=== PATIENT | male | born 1965 | race Caucasian/White ===

== ENCOUNTER → 2021-10-31 09:33 | Outpatient (BNVA) | payer OTHER, SELFPAY | PROVIDERS: PCP Internal Medicine; Referring Provider Internal Medicine; Visit Provider Surgery ==

== ENCOUNTER 2021-11-16 08:07 | Outpatient (REF) | payer OTHER, SELFPAY ==
--- NOTE | ~2021-11-16 | CT_ITS ---
EXAMINATION: CT PELVIS WITH CONTRAST CLINICAL INFORMATION: Unilateral inguinal hernia. COMPARISON: None TECHNIQUE: Helical scanning was performed with submillimeter collimation through the pelvis with the use of oral contrast and during bolus intravenous injection of 100 mL of Omnipaque 350 intravenous contrast. Sagittal and coronal multiplanar 2-D reconstructions were obtained. This CT examination was performed using dose optimization techniques as appropriate, variously including the following: *Automated exposure control *Adjustment of mA and/or kV according to patient size (this includes techniques or standardized protocols for targeted exams where dose is matched to indication/reason for exam; i.e. extremities or head) *Use of iterative reconstruction technique DLP: 679 mGy-cm FINDINGS: PELVIS: There is contrast opacified small bowel loops to be normal caliber. There is stool and contrast in the right colon. Appendix is not visualized. The prostate gland is normal size. The bladder is nondistended. No abnormal size mediastinal or hilar lymph nodes seen. The right inguinal hernia containing peritoneal fat with mild fat stranding, likely secondary to vascular compromise. The left and bilateral canal is minimal fat. OSSEOUS STRUCTURES: No lytic or sclerotic process seen. There is vacuum disc phenomena and loss of disc at L5-S1 disc level. CT/CT pelvis w con IMPRESSION: Right inguinal hernia containing intraperitoneal fat with mild fat stranding likely low-grade inflammatory process. Mild constipation.
[2021-11-16 08:37] LABS: Blood Urea Nitrogen 22 mg/dL (9-16); Estimated Glomerular Filt Rate > 60
[2021-11-16] MEDS: iohexoL 350 MG/ML 100 ML INFUS..BTL 85 ML IV (11:19)
[2021-11-16] MEDS: Barium Sulfate Oral (Vanilla) 450 ML ORAL.SUSP 900 ML PO (11:20)
== END 2021-11-16 08:08 | disposition home or self-care (01) ==
LOC: HO.XRAY 08:07
PROVIDERS: PCP Internal Medicine; Visit Provider Surgery
DX: K40.91 Unilateral inguinal hernia, without obstruction or gangrene, recurrent (principal)
CPT/HCPCS: 36415; 72193; 82565; 84520; Q9967

== ENCOUNTER → 2021-11-21 10:41 | Outpatient (BNVA) | payer OTHER, SELFPAY | PROVIDERS: PCP Internal Medicine; Referring Provider Internal Medicine; Visit Provider Surgery ==

== ENCOUNTER 2021-12-25 09:54 | Day surgery (SDC) | payer OTHER, SELFPAY ==
[2021-12-14 15:28] VITALS: BMI 34.5
--- NOTE | 2021-12-22 09:01 | P.CONAN_ITS ---
Documented by User: Adele Hampton NP 12/22/21 09:01 HPI - Anesthesia Eval Consult details Narrative: 56yo M for Hernia Repair Inguinal with Mesh PMFSH Active Problems Active Problems: All Active Problems (Updated 12/14/21 @ 14:15 by Olivia Sanchez RN) Recurrent right inguinal hernia (Acute) Past Medical History Medical History HTN (hypertension) Family History Family History Mother History of brain cancer Surgical History Surgical History H/O colonoscopy History of excision of mass History of removal of cyst (11/04/14) History of right inguinal hernia repair (04/14/20) History of tonsillectomy History of umbilical hernia repair (11/16/14) Social History Social History Alcohol intake: current Alcohol intake frequency: holidays/special occasions only Patient Tobacco Use Status: Never used Tobacco Advance Directives Information Provided: Yes (brochure mailed) Advance Directives on File: No Meds Allergies Allergy/AdvReac Type Severity Reaction Status Date / Time No Known Allergies Allergy Unverified 12/25/21 11:01 Home Medications Medication Instructions Recorded Confirmed Last Taken Type lisinopril 20 mg tablet 20 mg PO DAILY 10/31/21 12/14/21 Unknown History metoprolol succinate 50 mg 50 mg PO DAILY 10/31/21 12/25/21 12/24/21 History tablet,extended release 24 hr Exam Exam Date and Time: December 22, 2021 09 Height,Weight and Vital Signs: Height 6 ft Weight 115.666 kg Pertinent Lab Results Pertinent Lab Results: Laboratory Tests 11/16/21 08:17 BUN 22 H Creatinine 0.95 Assessment and Plan Assessment Anesthesia Assessment: Chart Reviewed Documented by User: Venancio Bedolla MD 12/25/21 11:24 [facility] Past Medical History Medical History HTN (hypertension) Family History Family History Mother History of brain cancer Family history of problems with anesthesia: No Surgical History Surgical History H/O colonoscopy History of excision of mass History of removal of cyst (11/04/14) History of right inguinal hernia repair (04/14/20) History of tonsillectomy History of umbilical hernia repair (11/16/14) History of Problems with Anesthesia: No Social History Social History Alcohol intake: current Alcohol intake frequency: holidays/special occasions only Patient Tobacco Use Status: Never used Tobacco Advance Directives Information Provided: Yes (brochure mailed) Advance Directives on File: No Meds Allergies Allergy/AdvReac Type Severity Reaction Status Date / Time No Known Allergies Allergy Unverified 12/25/21 11:01 Home Medications Medication Instructions Recorded Confirmed Last Taken Type lisinopril 20 mg tablet 20 mg PO DAILY 10/31/21 12/14/21 Unknown History metoprolol succinate 50 mg 50 mg PO DAILY 10/31/21 12/25/21 12/24/21 History tablet,extended release 24 hr Exam Airway Mallampati Class: II TM Dist: >3cm Neck ROM: Full Assessment and Plan Assessment Anesthesia Assessment: Anesthesia Plan Discussed Final Anesthetic Review Family History of Problems with Anesthesia: No History of Problems with Anesthesia: No NPO: Yes ASA Class: II and III Final Preanesthetic Review: No Changes in Pt Med Stat, Meds/Allgs Chart Reviewed, Consent Obtained/Reviewed and Anes Risks/Benef Reviewed Patient Risk: Intermediate Procedure Risk: Intermediate Anesthetic Plan Anesthetic Plan: GA Disposition: Standard PACU
[2021-12-25] VITALS (7 sets, daily range): BP systolic 133–155; BP diastolic 69–95; PULSE 69–79; RESP 16–18; TEMP 36.4–37.2; O2SAT 93–97; BMI 33.9
--- NOTE | 2021-12-25 11:56 | MHC.SHP ---
Pre-Procedural Eval Section A Date of Service: 12/25/21 The patient is an INPATIENT: No Changes since office visit: Yes Patient answered all questions; No Cold of Flu in the past 2 weeks, No New Medical Problems and No Changes in Medication The History & Physical has been completed within 30 days and I have reviewed it.: No Section B Chief Complaint: Recurrent right inguinal hernia Details of Present Illness: Painful lump in the right groin, confirmed on CT pelvis. Patient with a prior RIH repair with mesh in 2019. Relevant Family History (Specify if Yes): No Relevant Social History: None Present Medications: see Short Stay Collaborative assessment Medical History: No relevant PMH History of Previous Operations: Relevant previous surgery/procedure and date(s) (RIH repair) Allergies: Allergies Allergy/AdvReac Type Severity Reaction Status Date / Time No Known Allergies Allergy Unverified 12/25/21 11:01 Review of Systems Sugical H&P ROS: Negative: Constitution, Cardiovascular, Respiratory, Neurological, Psychiatric, Hem-Onc, Allergic/Immunologic, Gastrointestinal, Genitourinary, Musculoskeletal, Integumentary, Endocrine and Eyes/Ears/Nose/Throat Exam Surgical H&P Exam: Normal: HEENT, Normal: Heart, Normal: Lungs, Normal: Extremities, Normal: Skin and Normal: Neurological and Significant Findings: Abdomen (palpable hernia right groin ) Plan Diagnosis/Plan: Unchanged I reviewed the procedure, alternatives and risks of repair of the recurrent right inguinal hernia with mesh, and he consents to the surgery. I have reviewed the history and physical and performed a pertinent physical examination on my patient. No changes have occurred unless specified.
--- NOTE | 2021-12-25 13:43 | P.OP_ITS ---
Operative Note Operative Note Date of Service: 12/25/21 Narrative: Preoperative diagnosis:Recurrent right inguinal hernia Postoperative diagnosis: same Procedure: repair of recurrent right inguinal hernia Surgeon: Pankaj Farrell MD Business Leader: Nasra Gonzales PA-C Anesthesia: general LMA Indications for procedure: 56-year-old male patient with a previous history of a right inguinal hernia using large extended PHS mesh in 2019 presenting today for repair of a recurrent inguinal hernia which developed after a coughing spell last year. Operative findings: large direct right inguinal hernia which developed from the mesh lifting off the fixation point in the lower medial inguinal canal Specimen: none Estimated blood loss: 10 mL Complications: none Procedure details: patient was brought to the OR placed in a supine position. After administering general anesthesia the patient's abdomen was prepped with ChloraPrep and draped in a sterile fashion. A surgical time-out was called the consent confirmed. Patient received preoperative antibiotics and Venodyne boots were in place. Local anesthesia consisting of 0.5% Sensorcaine was infiltrated over the right inguinal ligament using the previous incision. Previous incision was then opened with a scalpel carried down past James's fascia, up to the external oblique aponeurosis. Local anesthesia was infiltrated below the external oblique aponeurosis. This was then incised with a scalpel wide with the Blanchard enbaum scissors. Significant scar tissue was noted at this point. A mesh was identified found to be intact. There was evidence of lift off of the mesh in the inferior portion medially in the inguinal canal and fixation point at the pubic tubercle. Incarcerated loop of colon was noted within the hernia sac. This was reduced back into the abdominal cavity as was the hernia sac. The mesh repair was then reinforced using interrupted 1 Tycron sutures to reattach the mesh to the shelving edge of the inguinal ligament inferiorly. He was also secured to the pubic tubercle medially. Contents of the spermatic cord were found to be intact. No other inguinal hernia identified. The wounds were irrigated with saline solution and suctioned dry. No evidence of cord bleeding was identified at this time. External oblique aponeurosis was then reapproximated using a running 2 0 Polysorb suture. James's fascia and dermis were reapproximated using interrupted 3-0 Polysorb sutures. Skin was th en closed using a running subcuticular 4-0 Polysorb suture. Steri-Strips 2 x 2 gauze and Tegaderm were then applied. The patient tolerated the procedure well. Sponge, instrument, and needle counts reported as correct. The patient was transferred to PACU in stable condition.
== END 2021-12-25 15:35 | disposition home or self-care (01) ==
PROVIDERS: PCP Internal Medicine; Visit Provider Surgery
PROC: (CPT 49520; principal; 2021-12-25 11:50)
DX: K40.91 Unilateral inguinal hernia, without obstruction or gangrene, recurrent (principal); Z79.899 Other long term (current) drug therapy; I10 Essential (primary) hypertension
CPT/HCPCS: 49520; J0690; J1100; J1885; J2250; J2405; J3010

== ENCOUNTER → 2022-01-02 15:47 | Outpatient (BNVA) | payer OTHER, SELFPAY | PROVIDERS: PCP Internal Medicine; Referring Provider Internal Medicine; Visit Provider Surgery ==

== ENCOUNTER 2022-01-16 10:34 | Day surgery (SDC) | payer OTHER, SELFPAY ==
--- NOTE | 2022-01-15 11:00 | P.CONAN_ITS ---
Documented by User: Adele Hampton NP 01/15/22 11:01 HPI - Anesthesia Eval Consult details Narrative: 56yo M for Colonoscopy s/p hernia repair 11/2021 with [place] [facility] Active Problems Active Problems: All Active Problems (Updated 12/14/21 @ 14:15 by Olivia Sanchez RN) Recurrent right inguinal hernia (Acute) Past Medical History Medical History HTN (hypertension) Family History Family History Mother History of brain cancer Family history of problems with anesthesia: No Surgical History Surgical History H/O colonoscopy History of excision of mass History of removal of cyst (11/04/14) History of right inguinal hernia repair (04/14/20) History of tonsillectomy History of umbilical hernia repair (11/16/14) S/P right inguinal hernia repair (11/24/21) History of Problems with Anesthesia: No Social History Social History Alcohol intake: current Alcohol intake frequency: a few times a week Patient Tobacco Use Status: Never used Tobacco Use of substances other than those prescribed or required for medical reasons: No Are you DNR?: No Advance Directives: No Advance Directives Information Provided: Yes Meds Allergies Allergy/AdvReac Type Severity Reaction Status Date / Time No Known Allergies Allergy Verified 01/16/22 10:59 Home Medications Medication Instructions Recorded Confirmed Last Taken Type lisinopril 20 mg tablet 20 mg PO DAILY 10/31/21 01/03/22 Unknown History metoprolol succinate 50 mg 50 mg PO DAILY 10/31/21 01/03/22 12/24/21 History tablet,extended release 24 hr Exam Exam Date and Time: January 15, 2022 1100 Pertinent Lab Results Pertinent Lab Results: Laboratory Tests 11/16/21 08:17 BUN 22 H Creatinine 0.95 Assessment and Plan Assessment Anesthesia Assessment: Chart Reviewed Final Anesthetic Review Family History of Problems with Anesthesia: No History of Problems with Anesthesia: No Documented by User: Matthias Raymundo MD 01/16/22 15:45 PMF Past Medical History Medical History HTN (hypertension) Family History Family History Mother History of brain cancer Surgical History Surgical History H/O colonoscopy History of excision of mass History of removal of cyst (11/04/14) History of right inguinal hernia repair (04/14/20) History of tonsillectomy History of umbilical hernia repair (11/16/14) S/P right inguinal hernia repair (11/24/21) Social History Social History Alcohol intake: current Alcohol intake frequency: a few times a week Patient Tobacco Use Status: Never used Tobacco Use of substances other than those prescribed or required for medical reasons: No Are you DNR?: No Advance Directives: No Advance Directives Information Provided: Yes Meds Allergies Allergy/AdvReac Type Severity Reaction Status Date / Time No Known Allergies Allergy Verified 01/16/22 10:59 Home Medications Medication Instructions Recorded Confirmed Last Taken Type lisinopril 20 mg tablet 20 mg PO DAILY 10/31/21 01/03/22 Unknown History metoprolol succinate 50 mg 50 mg PO DAILY 10/31/21 01/03/22 12/24/21 History tablet,extended release 24 hr Exam Airway Mallampati Class: II TM Dist: >3cm Neck ROM: Full Loose/Missing/Broken Teeth: Yes (Chipped teeth ) Heart: rrr Lungs: bl breath sounds Assessment and Plan Assessment Anesthesia Assessment: Anesthesia Plan Discussed Final Anesthetic Review NPO: Yes ASA Class: II Final Preanesthetic Review: Meds/Allgs Chart Reviewed, Consent Obtained/Reviewed and Anes Risks/Benef Reviewed Patient Risk: Intermediate Procedure Risk: Intermediate Anesthetic Plan Anesthetic Plan: MAC: Disposition: Standard PACU
[2022-01-16 11:58] VITALS: BP 159/86; PULSE 64; RESP 16; TEMP 36.2; O2SAT 96; BMI 33.9
[2022-01-16] MEDS: Lactated Ringers 1,000 ML 100 ML IVCONT (12:08)
[2022-01-16] MEDS: Sodium Phosphate,Mono-Dibasic 133 ML ENEMA PR (12:50)
--- NOTE | 2022-01-16 12:57 | MHC.SHP ---
Pre-Procedural Eval Section A Date of Service: 01/16/22 The patient is an INPATIENT: No Changes since office visit: No Cold of Flu in the past 2 weeks, No New Medical Problems, No Changes in Medication and No Patient answered all questions The History & Physical has been completed within 30 days and I have reviewed it.: Yes Section B Chief Complaint: screeing Allergies: Allergies Allergy/AdvReac Type Severity Reaction Status Date / Time No Known Allergies Allergy Verified 01/16/22 10:59 Plan I have reviewed the history and physical and performed a pertinent physical examination on my patient. No changes have occurred unless specified.
[2022-01-16 13:40] VITALS: BP 111/71; PULSE 74; RESP 16; TEMP 36.1; O2SAT 94
--- NOTE | 2022-01-16 13:46 | PC.NURSE ---
md shields by bedside. maryann po challenge.
[2022-01-16 13:55] VITALS: PULSE 68; RESP 16; TEMP 36.3; O2SAT 95
--- NOTE | 2022-01-16 13:58 | PM.OP ---
Brief Operative Note Date of Service: 01/16/22 Pre-op diagnosis: screening Post-op diagnosis: same (colon polyps) Surgeon: Krishna Erickson Anesthesia: MAC Was an Industrial Twisting Machine Operator used for this Procedure?: No Estimated blood loss (mL): 5 Pathology: other (polyps) Condition: stable Disposition: PACU
--- NOTE | 2022-01-16 14:49 | OP_ITS ---
SURGEON: Krishna Erickson MD INDICATIONS: Colon cancer screening and prior history of adenomatous colon polyps. PREOPERATIVE DIAGNOSIS: POSTOPERATIVE DIAGNOSIS: PROCEDURE PERFORMED: Colonoscopy to the cecum with biopsy and snare polypectomy. ESTIMATED BLOOD LOSS: COMPLICATIONS: ANESTHESIA: ASSISTANTS: SPECIMENS: MEDICATIONS: Monitored anesthesia care. DESCRIPTION OF PROCEDURE: The history and physical were performed. The risks and benefits of the procedure were explained to the patient. Informed consent was obtained. The patient was placed in left lateral decubitus position. A digital rectal exam was performed and was found to be normal. The Olympus pediatric video colonoscope was introduced into the rectum and advanced to the cecum without difficulty. The cecum was identified by transillumination, palpation, and identification of ileocecal valve. Examination was performed. The scope was removed. He tolerated the procedure well and was taken to recovery area in stable condition. FINDINGS: The terminal ileum was examined and appeared normal. The visualized colonic mucosa was normal. There was some liquid stool in the descending and sigmoid colon, which was washed and suctioned. This limited the sensitivity examination for detection of small polyps. Multiple polyps were removed at 80 cm was a less than 5 mm polyp, which was removed with a biopsy forceps. At 55 cm was an 8 mm polyp, which was removed with a snare and recovered via suction. In the rectum, on retroflexed view was a 6 mm polyp, which was removed with a snare and recovered via suction. There was moderate sigmoid diverticulosis. Retroflexed examination was otherwise normal. IMPRESSION: Colon polyps, diverticulosis. RECOMMENDATION: Follow up biopsy results. MD CM Ocasio/ADENL / [phone]
== END 2022-01-16 14:29 | disposition home or self-care (01) ==
PROVIDERS: PCP Internal Medicine; Visit Provider Internal Medicine Gastroenterology
PROC: 0DJD8ZZ Inspection of Lower Intestinal Tract, Via Natural or Artificial Opening Endoscopic (ICD-10-PCS; CPT 45378; principal; 2022-01-16 11:50)
DX: Z12.11 Encounter for screening for malignant neoplasm of colon (principal); Z86.010 Personal history of colon polyps; D12.4 Benign neoplasm of descending colon; D12.8 Benign neoplasm of rectum; K57.30 Diverticulosis of large intestine without perforation or abscess without bleeding; I10 Essential (primary) hypertension; Z79.899 Other long term (current) drug therapy
CPT/HCPCS: 45385; 45380; 88305

== ENCOUNTER → 2022-03-08 09:39 | Outpatient (BNVA) | payer OTHER, SELFPAY | PROVIDERS: PCP Internal Medicine; Referring Provider Internal Medicine; Visit Provider Surgery | DX: Z13.89 Encounter for screening for other disorder (principal) ==

== ENCOUNTER 2025-03-05 09:16 | Day surgery (SDC) | payer OTHER, SELFPAY ==
--- NOTE | 2025-03-04 11:43 | P.CONAN_ITS ---
Documented by User: Adele Hampton NP 03/04/25 11:43 HPI - Anesthesia Eval Consult details Narrative: 59yo M for Colonoscopy [facility] Active Problems Active Problems: All Active Problems Recurrent right inguinal hernia (Acute) Past Medical History Medical History HTN (hypertension) Family History Family History Mother History of brain cancer Family history of problems with anesthesia: No Surgical History Surgical History H/O colonoscopy History of right inguinal hernia repair (04/14/20) History of umbilical hernia repair (11/16/14) History of removal of cyst (11/04/14) History of excision of mass History of tonsillectomy History of Problems with Anesthesia: No Social History Social History Are you a primary post acute care nurse practitioner to a significant other at home: No Do you presently have visiting nurse or other home services: No Alcohol intake: current Alcohol intake frequency: a few times a week Patient Tobacco Use Status: Former Tobacco user Tobacco use type: Cigarette Years Smoked: 7 Meds Allergies Allergy/AdvReac Type Severity Reaction Status Date / Time No Known Allergies Allergy Verified 03/05/25 09:58 Home Medications ?Medication ?Instructions ?Recorded ?Confirmed ?Last Taken ?Type lisinopril 20 mg tablet 20 mg PO DAILY 10/31/21 03/05/25 03/05/25 History metoprolol succinate 50 mg 50 mg PO DAILY 10/31/21 03/05/25 03/05/25 History tablet,extended release 24 hr Assessment and Plan Assessment Anesthesia Assessment: Chart Reviewed Final Anesthetic Review Family History of Problems with Anesthesia: No History of Problems with Anesthesia: No Documented by User: Paris Lovell MD 03/05/25 11:05 [facility] Past Medical History Medical History HTN (hypertension) Family History Family History Mother History of brain cancer Family history of problems with anesthesia: No Surgical History Surgical History H/O colonoscopy History of right inguinal hernia repair (04/14/20) History of umbilical hernia repair (11/16/14) History of removal of cyst (11/04/14) History of excision of mass History of tonsillectomy History of Problems with Anesthesia: No Social History Social History Are you a primary post acute care nurse practitioner to a significant other at home: No Do you presently have visiting nurse or other home services: No Alcohol intake: current Alcohol intake frequency: a few times a week Patient Tobacco Use Status: Former Tobacco user Tobacco use type: Cigarette Years Smoked: 7 Meds Allergies Allergy/AdvReac Type Severity Reaction Status Date / Time No Known Allergies Allergy Verified 03/05/25 09:58 Home Medications ?Medication ?Instructions ?Recorded ?Confirmed ?Last Taken ?Type lisinopril 20 mg tablet 20 mg PO DAILY 10/31/21 03/05/25 03/05/25 History metoprolol succinate 50 mg 50 mg PO DAILY 10/31/21 03/05/25 03/05/25 History tablet,extended release 24 hr Exam Height,Weight and Vital Signs: Height 6 ft Weight 111.2 kg Vital Signs Temp Pulse Resp BP Pulse Ox O2 Del Method 03/05/25 09:46 97.7 F 70 16 140/95 H 98 Room Air Airway Mallampati Class: II TM Dist: >3cm Neck ROM: Full Loose/Missing/Broken Teeth: Yes (Missing molar. Denies broken or loose teeth) Heart: RRR Lungs: CTAB Assessment and Plan Assessment Anesthesia Assessment: Anesthesia Plan Discussed and Chart Reviewed Final Anesthetic Review Family History of Problems with Anesthesia: No History of Problems with Anesthesia: No NPO: Yes ASA Class: II Final Preanesthetic Review: No Changes in Pt Med Stat, Meds/Allgs Chart Rev iewed, Consent Obtained/Reviewed and Anes Risks/Benef Reviewed Patient Risk: Low Procedure Risk: Low Assessment/Block/Sedation in SS: Assess/Block/Sedation-SS Anesthetic Plan Anesthetic Plan: TIVA Disposition: Standard PACU
--- OUTSIDE RECORDS SUMMARY | 2025-03-04 13:08 | XMS_ITS ---
Author Organization [facility] Address [address] [place] [phone] Care Team Providers Care [employer]an [employer] Senior Specialist Name Role Phone Ramin Chaudhary MD Primary Care Provider Unavailab hernesto Erickson Jr, Krishna Unavailable [phone] REASON FOR VISIT please lock 02-10-25 office note Encounters Encounter Location Date Provider Diagnosis [facility] [address] [place] [phone] 03/03/2025 Krishna Erickson Jr Plan Of Treatment Next Appt Details Provider Name:Krishna granger Jr, 03/05/2025 11:00:00 AM, [address] [place] [address], [phone], Progress Notes * AZRA HOLLIDAY ADOB:1965 ([age] yo M)Acc No.[id number]:03/03/2025 Patient:?AZRA HOLLIDAY :1965???Age:59 Y???Sex:Male Address:[address] [place] [address], [place], [id number] * true * Date:? Generated for Printi ng/Fadivinag/eTransmitting on:?03/04/2025 01:08 PM EDT
--- OUTSIDE RECORDS SUMMARY | 2025-03-04 13:08 | XMS_ITS | Patient Health Record ---
Author Organization [facility] Address [address] [place] [address] Care Team Providers Care Honeycomb Decapper Name Role Phone Ramin Chaudhary MD Primary Care Provider Unavailab Krishna Cotter Jr Unavailable [phone] Allergies No Known Allergies Reason For Referral No Information Medications Medication SIG (Take, Route, Frequency, Duration) Notes Start Date End Date Status Metoprolol Succinate ER 50 MG 1 tablet Orally Once a day A ctive Lisinopril 20 MG 1 tablet Orally Once a day Active Immunizations Vaccine Route Administration Date Status Comme nts Influenza Unknown 01/10/2022 Refused Influenza Unknown 02/10/2025 Refused Social History Tobacco Use: Social History Observation Description Date Details (start date - stop date) Never Smoker NA - NA Tobacco Use/Smoking Question Answer Notes Patient is a nonsmoker Problems Problem Type SNOMED Code ICD Code Onset Dates Problem Status W/U Status Risk Notes Problem 773716109 Colon cancer screening (Z12.11) Active confirmed Problem 71692334 Encounter for other preprocedural examination (Z01.818) Active confirmed Problem 299976383 History of adenomatous polyp of colon (Z86.0101) Active confirmed Vital Signs Temperature 98.2 degrees Fahrenheit 02/10/2025 Blood pressure diastolic 01 mm Hg 02/10/2025 Height 71 in 02/10/2025 Blood pressure systolic 001 mm Hg 02/10/2025 Weight 253.2 lbs 02/10/2025 BMI 35.31 kg/m2 02/10/2025 Encounters Encounter Location Date Provider Diagnosis [facility] [address] [place] [address] 02/10/2025 Krishna Erickson Jr History of adenomatous polyp of colon Z86.0101 ; Encounter for other preprocedural examination Z01.818 and Colon cancer screening Z12.11 [facility] [address] [place] [address] 03/03/2025 Krishna Erickson Jr Assessments Encounter Date Diagnosis (ICD Code) Assessment Notes Treatment Notes Treatment Clinical Notes Section Notes 02/10/2025 Encounter for other preprocedural examination (ICD-10 - Z01.818) We discussed colonoscopy today. We discussed risks and benefits of the procedure today. He understands these and agrees to proceed. This will be scheduled at his convenience. 02/10/2025 History of adenomatous polyp of colon (ICD-10 - Z86.0101) We discussed colonoscopy today. We discussed risks and benefits of the procedure today. He understands these and agrees to proceed. This will be scheduled at his convenience. 02/10/2025 Colon cancer screening (ICD-10 - Z12.11) We discussed colonoscopy today. We discussed risks and benefits of the procedure today. He understands these and agrees to proceed. This will be scheduled at his convenience. Plan Of Treatment Future Test Test Name Order Date COLONOSCOPY 04/25/2016 COLONOSCOPY 01/10/2022 COLONOSCOPY 02/10/2025 Next Appt Details Provider Name:Krishna granger Jr, 03/05/2025 11:00:00 AM, [address] [facility] , [place], [place], [phone], Insurance Providers Payer Name Payer Address Payer Phone Subscriber Number Group Number Insured Name Patient Relationship to Insured Coverage Start Date Coverage End Date [facility] Insurance ([employer]) O [address] [address] [id number] AZRA MILLS Self - patient is the insured Medical (General) History Medical History History ICD Code hypertension Colonoscopy 01/16, tubular adenoma x 3, 3 -year follow-up Surgical History Surgery Date(Month/Year) Recurrent right inguinal hernia, repair x 2
--- OUTSIDE RECORDS SUMMARY | 2025-03-04 13:08 | XMS_ITS ---
Author Organization [facility] Address [address] [place] [phone] Care Team Providers Care Butadiene Converter Utility Operator Name Role Phone Ramin Chaudhary MD Primary Care Provider Unavailab Vahe Rowan, Krishna Unavailable Allergies No Known Allergies REASON FOR VISIT Patient presents today for a colon screening Medications Medication SIG (Take, Route, Frequency, Duration) Notes Start Date End Date Status Metoprolol Succinate ER 50 MG 1 tablet Orally Once a day A ctive Lisinopril 20 MG 1 tablet Orally Once a day Active Immunizations Vaccine Route Administration Date Status Comme nts Influenza Unknown 02/10/2025 Refused Social History Tobacco Use: Social History Observation Description Date Details (start date - stop date) Never Smoker NA - NA Tobacco Use/Smoking Question Answer Notes Patient is a nonsmoker Problems Problem Type SNOMED Code ICD Code Onset Dates Problem Status W/U Status Risk Notes Problem 771263155 History of adenomatous polyp of colon (Z86.0101) Active confirmed Vital Signs Temperature 98.2 degrees Fahrenheit 02/11/20 25 Blood pressure systolic 001 mm Hg 02/11/20 25 Blood pressure diastolic 01 mm Hg 025 Height 71 in 02/10/2025 Weight 253.2 lbs 02/10/2025 BMI 35.31 kg/m2 02/10/2025 Encounters Encounter Location Date Provider Diagnosis [facility] [address] [place] [phone] 02/10/2025 Krishna Erickson Jr History of adenomatous polyp of colon Z86.0101 ; Encounter for other preprocedural examination Z01.818 and Colon cancer screening Z12.11 Assessments Encounter Date Diagnosis (ICD Code) Assessment Notes Treatment Notes Treatment Clinical Notes Section Notes 02/10/2025 History of adenomatous polyp of colon (ICD-10 - Z86.0101) We discussed colonoscopy today. We discussed risks and benefits of the procedure today. He understands these and agrees to proceed. This will be scheduled at his convenience. 02/10/2025 Encounter for other preprocedural examination (ICD-10 [...] Future Test Test Name Order Date COLONOSCOPY 02/10/2025 Next Appt Details Follow Up: 1 Year, Reason: Provider Name:Krishna granger , 03/05/2025 11:00:00 AM, [address] [place] [address], [phone], Progress Notes * KAREEM HOLLIDAY ADOB:1965 ([age] yo M)Acc No.[id number]:02/10/2025 Progress Notes Patient:KAREEM WISE Provider:?Krishna Erickson MD :1965???Age:59 Y???Sex:Male Tom e:02/10/2025 Address:[address] [place], [place] [id number] Pcp:Ramin Chaudhary MD Subjective: * Chief Complaints: * ???1. Patient presents today for a colon screening. * HPI: ???New symptom(s):? Kareem Holliday is a pleasant 59-year-old man seen today for colon cancer screening. Previous colonoscopy in 2021 showed multiple tubular adenomas and 3-year follow- up was recommended. He has no complaints of rectal bleeding. He has no change in his bowel habits. He does report that he is working out to try and keep in shape and lose weight. * ROS:?General/Constitutional:?Change in appetite?denies.?Fatigue?denies.?ENT:?Patient denies?difficulty swallowing.?Respiratory:?Patient denies?shortness of breath.?Cardiovascular:?Patient denies?chest pain.?Gastrointestinal:?Comments?See HPI for details.?Genitourinary:?Difficulty urinating?denies.?Incontinence?denies.?Musculoskeletal:?Patient denies?muscle aches.?Skin:?Patient denies?pruritis.?Neurologic:?Patient denies?low back pain.?Psychiatric:?Patient denies?mental or physical abuse.? * Medical History:?Hypertensio n, Colonoscopy 01/16, tubular adenoma x 3, 3-year follow-up. * Surgical History:?Recurrent right inguinal hernia, repair x 2 . * Family History:?Father: dece ased, diagnosed with Diabetes.?Mother: .? No family history of colon cancer, liver cancer. * Social History:?Tobacco Use:?Tobacco Use/Smoking?Patient is a?nonsmoker.?Drugs/Alcohol:?Alcohol Screen?Points: 8, Interpretation: Positive.?Miscellaneous:?Marital status: . Occupation: [employer] maintenance. * Medications:?Taking Metoprol ol Succinate ER 50 MG Tablet Extended Release 24 Hour 1 tablet Orally Once a day , Taking Lisinopril 20 MG Tablet 1 tablet Orally Once a day , Discontinued Azithromycin 250 MG Tablet Oral , Discontinued MiraLax (colon prep) 17 GM/SCOOP Powder mixed with Gatorade or Crystal Light Orally begin at 5:00 p.m. the day before the procedure * Allergies:?N.K.D.A. Objective: * Vitals:?Wt:253.2lbs, Ht: 71 in, BMI:35.31Index, BP:001/01mm Hg, Temp:98.2, Wt- k.85. * Examination: ???General Examination: ?GENERAL APPEARANCE:?in no acute distress.?HEAD:?normocephalic.?EYES:?sclera non-icteric.?ORAL CAVITY:?mucosa moist.?NECK/THYROID:?no lymphadenopathy.?SKIN:?anicteric.?HEART:?S1, S2 normal, no murmurs.?LUNGS:?clear to auscultation bilaterally.?CHEST:?normal shape and expansion.?ABDOMEN:?soft, nontender, nondistended, bowel sounds present, no organomegaly .?EXTREMITIES:?no clubbing, cyanosis, or edema.?PSYCH:?cognitive function intact.? Assessment: * Assessment: 1.?Encounter for other prepr ocedural examination - Z01.818 (Primary)???2.?History of adenomatous polyp of colon - Z86.0101???3.?Colon cancer screening - Z12.11??? We discussed colonoscopy tod zulema. We discussed risks and benefits of the procedure today. He understands these and agrees to proceed. This will be scheduled at his convenience. Plan: * Treatment: * Immunizations:? Influenza (Not administered - Refused: Patient decision) * Procedure Codes:?3017F COLOR ECTAL CA SCREEN DOC REV, G9903 Pt scrn tbco id as non user * Preventive Medicine:? ??Counseling:?Care goal follow-up plan:?Above Normal BMI Follow-up?Dietary management education, guidance, and counseling,?BMI management provided?Yes.? * Follow Up:?1 Year * * Sign off status: Completed true * Provider:?Krishna Erickson MD Date:?0 02/10/2025 Generated for Jamaal tamayo/Jasmin/eTransmitting on:?03/04/2025 01:08 PM EDT History and Physical Notes * HPI (History of Present Illness) Category Sub-Category Detail Notes Category Not es New symptom(s) Kareem Holliday is a pleasant 59-year-old man seen today for colon cancer screening. Previous colonoscopy in 2021 showed multiple tubular adenomas and 3-year follow-up was recommended. He has no complaints of rectal bleeding. He has no change in his bowel habits. He does report that he is working out to try and keep in shape and lose weight. Examination Category Sub-Category Detail Notes Category Not es General Examination GENERAL APPEARANCE: in no acute di stress HEAD: normocephalic EYES: sclera non-icteric NECK/THYROID: no lymphadenopathy HEART: S1, S2 normal, no mu rmurs CHEST: normal shape and exp ansion LUNGS: clear to auscultatio n bilaterally ABDOMEN: soft, nontender, non distended, bowel sounds present, no organomegaly SKIN: anicteric EXTREMITIES: no clubbing, cyanosi s, or edema PSYCH: cognitive function i ntact ORAL CAVITY: mucosa moist
[2025-03-05 09:46] VITALS: BP 140/95; PULSE 70; RESP 16; TEMP 36.5; O2SAT 98; BMI 33.2
[2025-03-05] MEDS: Lactated Ringers 1,000 ML 100 ML IVCONT (10:07)
--- NOTE | 2025-03-05 11:02 | MHC.SHP ---
Pre-Procedural Eval Section A - 24 Hr Update-Section A only Date of Service: 03/05/25 The patient is an INPATIENT: No Changes since office visit: No Cold of Flu in the past 2 weeks, No New Medical Problems, No Changes in Medication and No Patient answered all questions The patient has been examined within 24 hours of the surgical procedure. The History & Physical has been completed within 30 days and I have reviewed it.: Yes Section B - Complete if H&P > 30 days Chief Complaint: hx colon polyps,screening Allergies: Allergies Allergy/AdvReac Type Severity Reaction Status Date / Time No Known Allergies Allergy Verified 03/05/25 09:58 Plan I have reviewed the history and physical and performed a pertinent physical examination on my patient. No changes have occurred unless specified. Time Spent With Patient Time: Total time managing care of this patient today ____ minutes.
[2025-03-05 11:35] VITALS: BP 91/50; PULSE 61; RESP 14; TEMP 36.4; O2SAT 93
[2025-03-05 11:50] VITALS: BP 106/70; PULSE 70; RESP 14; TEMP 36.4; O2SAT 95
--- NOTE | 2025-03-05 12:42 | OP_ITS ---
DATE OF SERVICE: 03/05/2025 SURGEON: Krishna Erickson MD INDICATIONS: Colon cancer screening and prior history of adenomatous colon polyps. PREOPERATIVE DIAGNOSIS: POSTOPERATIVE DIAGNOSIS: PROCEDURE PERFORMED: Colonoscopy to the terminal ileum. ESTIMATED BLOOD LOSS: COMPLICATIONS: ANESTHESIA: Monitored anesthesia care. ASSISTANTS: SPECIMENS: DESCRIPTION OF PROCEDURE: History and physical performed. The risks and benefits of the procedure were explained to the patient. Informed consent was obtained. The patient was placed in the left lateral decubitus position. A digital rectal exam was performed and was found to be normal. The Olympus pediatric videocolonoscope was introduced into the rectum and advanced to the cecum. The cecum was identified by transillumination, palpation, and identification of ileocecal valve. Examination was performed. The scope was removed. He tolerated the procedure well and was returned to recovery area in stable condition. FINDINGS: The terminal ileum was examined and appeared normal. The visualized colonic mucosa was normal. The quality of the prep was good. No polyps were identified. There was mild sigmoid diverticulosis. Retroflexed examination showed some small internal hemorrhoids. IMPRESSION: Normal colonoscopy. RECOMMENDATION: 1. Follow up as needed. 2. Repeat colonoscopy is recommended in 10 years for average-risk individuals. MD CM Ocasio/ADENL / [phone]
== END 2025-03-05 12:44 | disposition home or self-care (01) ==
PROVIDERS: PCP Internal Medicine; Visit Provider Internal Medicine Gastroenterology
PROC: 0DJD8ZZ Inspection of Lower Intestinal Tract, Via Natural or Artificial Opening Endoscopic (ICD-10-PCS; CPT 45378; principal; 2025-03-05 11:00)
DX: Z12.11 Encounter for screening for malignant neoplasm of colon (principal); Z86.0101 Personal history of adenomatous and serrated colon polyps; K57.30 Diverticulosis of large intestine without perforation or abscess without bleeding; K64.8 Other hemorrhoids; I10 Essential (primary) hypertension; Z79.899 Other long term (current) drug therapy; Z98.890 Other specified postprocedural states
CPT/HCPCS: 45378; J2003; J2704

== ENCOUNTER 2025-03-19 09:55 | Outpatient (AMB) | payer OTHER, SELFPAY ==
[2025-03-19 09:57] VITALS: BP 129/82; PULSE 86; RESP 16; TEMP 36.4; O2SAT 97; BMI 34.2
--- NOTE | 2025-03-19 09:57 | MHC.PC.OV ---
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: No Accompanied by: Self / Same As Patient Allergies No Known Allergies Allergy (Verified 03/19/25 10:12) Medication List - Last Reconciled 03/19/25 by Mary Omer PA-C lisinopril 20 mg PO DAILY metoprolol succinate ER 50 mg PO DAILY Tobacco use date assessed: 03/19/25 Dental Screening Dental Screen Date: 03/19/25 Did you have a dental visit in the last 12 months?: Yes Did you have a dental problem in the last 6 months where you did not have access to dental care?: No Was dental information given to patient?: Patient has dentist HPI establish care HPI Details The patient is a 59-year-old male presenting to establish a new primary care provider and a medication refill following the penitentiary of his previous physician. He has a documented history of essential hypertension, treated with lisinopril and metoprolol, with satisfactory management and compliance reported. Dermatologically, the patient has been managing persistent issues related to actinic keratosis. He reports having had previous scabs removed by a tech brazer tester, who prescribed a topical cream that has been effective in treating his condition. The patient seeks a refill as he anticipates increased sun exposure in the coming months. His recent colonoscopy, which took place two weeks ago, showed no abnormalities, and he remains active, symptom-free for common cardiac or pulmonary issues, reports sufficient exercise, and denies any recent changes in overall health status. Social History - He reports regular physical activity, including hiking and gym workouts. - Household consists of pets, including two Swedish Shepherds. - The patient works a graveyard shift and commutes using a [employer]. [facility] Medical History (Updated 03/19/25 @ 10:33 by Mary Omer PA-C) Baldness Class 1 obesity with body mass index (BMI) of 34.0 to 34.9 in adult Establishing care with new doctor, encounter for HTN (hypertension) Surgical History (Updated 03/19/25 @ 10:33 by Mary Omer, PA-C) H/O colonoscopy (~03/05/25) History of right inguinal hernia repair (04/14/20) History of umbilical hernia repair (11/16/14) History of removal of cyst (11/04/14) History of excision of mass History of tonsillectomy Family History Mother History of brain cancer Social History Housing: House Are you a primary acute care surgeon to a significant other at home: No Do you presently have visiting nurse or other home services: No Alcohol intake: current Alcohol intake frequency: a few times a week Patient Tobacco Use Status: Former Tobacco user Tobacco use type: Cigarette Years Smoked: 7 service: No Current occupational status: employed Cognitive needs: No Hearing needs: No Vision needs: Yes (rx glasses) Questionnaire PHQ-9 Over the last 2 weeks, how often have you been bothered by any of the following problems? 1. Little interest or pleasure in doing things: not at all 2. Feeling down, depressed, or hopeless: not at all 3. Trouble falling or staying asleep, or sleeping too much: not at all 4. Feeling tired or having little energy: not at all 5. Poor appetite or overeating: not at all 6. Feeling bad about yourself - or that you are a failure or have let yourself or your family down: not at all 7. Trouble concentrating on things, such as reading the newspaper or watching television: not at all 8. Moving or speaking so slowly that other people could have noticed. Or the opposite - being so fidgety or restless that you have been moving around a lot more than usual: not at all 9. Thoughts that you would be better off or of hurting yourself in some way: not at all Total score: 0 Depression Screening Interpretation: Negative Depression Screening Done: Yes 19990 - PHQ-9 Billing: Yes Source: Developed by Drs. Michael Whaley, Anni Villanueva, Harvey Silvestre and colleagues, with an educational neris from [employer]. Thrive Questionnaire Date Thrive assessed: 03/19/25 I am a: Patient What is your living situation today?: I have a steady place to live Within the past 12 months, did the food you bought not last and you didn't have the money to get more?: Never true Within the past 12 months, did you worry whether your food would run out before you got money to buy more?: Never true Do you have trouble paying for medicines?: No Do you have trouble getting transportation to medical appointments?: No Do you have trouble paying your heating and electricity bill?: No Do you have trouble taking care of your child, family member or friend?: No Do you have trouble with day-to-day activities such as bathing, preparing meals, shopping, managing finances, etc.?: No Are you currently unemployed and looking for a job?: No Are you interested in more education?: No Please select the resources that you would like help with: None THRIVE Score: 0 AUDIT C Alcohol Use Questionnaire (AUDIT-C) 1. How often do you have a drink containing alcohol?: 2-3 times a week 2. How many drinks containing alcohol do you have on a typical day when you are drinking?: 1 or 2 3. How often do you have six or more drinks on one occasion?: Never Total Score: 3 Score Reviewed/Action Taken: No ANILA-7 AMB Questionnaire ANILA-7 Date ANILA - 7 assessed: 03/19/25 Feeling nervous, anxious, or on edge: 0 = Not at all Not being able to stop or control worryin = Not at all Worrying too much about different things: 0 = Not at all Trouble relaxin = Not at all Being so restless that it is hard to sit still: 0 = Not at all Becoming easily annoyed or irritable: 0 = Not at all Feeling afraid as if something awful might happen: 0 = Not at all Total ANILA-7 score (0-4 normal; 5-9 mild; 10-14 moderate; 15-21 severe): 0 Source: Developed by Drs. Michael Whaley, Anni Villanueva, Harvey Silvestre and colleagues, with an educational neris from [employer]. ANILA-7 Assessment Billing ANILA-7 Assessment Tool: ANILA-7 Assessment 89134 Review of Systems Const Details: - Cardiovascular: Denies chest pain, dyspnea, and peripheral edema. - Dermatological: Reports prior actinic keratosis; presently stable. - Gastrointestinal: Denies any gastrointestinal symptoms; recent colonoscopy normal. - General: Denies recent onset of significant fatigue or exercise intolerance. Physical exam (Primary Care) Vital Signs: Last Vital Signs Temp 97.6 F 03/19/25 09:57 Pulse 86 03/19/25 09:57 Resp 16 03/19/25 09:57 BP 129/82 03/19/25 09:57 Pulse Ox 97 03/19/25 09:57 Oxygen Delivery Method Room Air 03/19/25 09:57 Care Plan Goal for BP management: <140/90 at Goal BMI result Body Mass Index 34.2 BMI Assessment/Plan discussion: High BMI High, discussed plan: lifestyle, weight reduction, dietary, physical activity and alcohol moderation Tobacco/Smoking Status: Tobacco use Status Tobacco use date assessed 03/19/25 03/19/25 10:07 Patient Tobacco Use Status Former Tobacco user 03/19/25 10:07 Tobacco use type Cigarette 03/19/25 10:07 PHQ-9: PHQ-9 Score PHQ-9: Total score 0 03/19/25 10:08 Depression Screening Interpretation: Negative Thrive Assessment: Date of Thrive Assessment Date Thrive assessed 03/19/25 03/19/25 10:07 Const Other: Appearance: Alert. Oriented X3. No acute distress. Head: Normal external exam. Normocephalic. Atraumatic. Eyes: Pupils are equal, round, and reactive to light. Extraocular movements intact. Conjunctiva and sclera normal. Eyelids normal. Ears: External auditory canal normal. Tympanic membranes normal. Throat: Pharynx normal. Uvula midline. Moist mucous membranes. Neck: Normal inspection. Neck supple. Full range of motion. No adenopathy. Thyroid Normal. No meningeal signs. No neck mass noted. Cardiovascular: Normal heart rate and rhythm. Heart sound normal. No murmurs noted. Pulses normal throughout. Respiratory: No respiratory distress. Painless inspiration. Breath sounds normal. No wheezes/rales/rhonchi noted. Chest nontender. No accessory muscle usage noted or decreased air movement noted. Abdomen: Soft and nontender. Bowel sounds normal in all 4 quadrants. No distention noted. No organomegaly noted. No visible injury noted. Back: No costovertebral angle tenderness. Full range of motion noted. Skin: Skin warm and dry. Normal skin color. Normal skin turgor. No rashes/lesions/lacerations noted. A couple of scabs removed, no new scabs or anything significant noted. Extremities: No lower extremity edema. Extremities exhibit normal range of motion. Extremities nontender. Neuro: Oriented X 3. No motor deficit. No sensory deficit. Reflexes normal. Results Reviewed Results Reviewed: - Procedures: Recent colonoscopy reported as normal. On 03/05/2025 Coding Level of Care Code New Pt Level 4 (63040) Complex EM visit Add On G2211 Diagnoses Establishing care with new doctor, encounter for Z76.89 Class 1 obesity with body mass index (BMI) of 34.0 to 34.9 in adult E66.811; Z68.34 HTN (hypertension) I10 Baldness L65.9 Additional Codes PHQ-9 - 38007 - PHQ-9 Billing: Yes ([id number]) ANILA-7 Assessment Billing - ANILA-7 Assessment Tool: ANILA-7 Assessment 06301 ([id number]) Assessment & Plan Assessment & Plan (1) Establishing care with new doctor, encounter for: Code(s): Z76.89 - Persons encountering health services in other specified circumstances Category: Medical (2) Class 1 obesity with body mass index (BMI) of 34.0 to 34.9 in adult: Code(s): E66.811 - Obesity, class 1; Z68.34 - Body mass index [BMI] 34.0-34.9, adult Category: Medical Plan: Patient to improve diet and exercise regimen. Condition is chronic and stable continue to monitor (3) HTN (hypertension): Code(s): I10 - Essential (primary) hypertension Category: Medical Plan: Continue current medications, lisinopril and metoprolol, for blood pressure management. Three months supply was recently filled. Blood pressure goal less than 140/90. Condition is chronic and stable continue to monitor. (4) Baldness: Code(s): L65.9 - Nonscarring hair loss, unspecified Category: Medical Plan: Refill of the topical cream will be provided. Continue diligent application and use sun protection. Condition is chronic and stable will continue to monitor. Plan Plan Patient was informed and verbally consented to the use of an ambient scribe for clinic note documentation during this visit. 1. Essential Hypertension Continue current medications, lisinopril and metoprolol, for blood pressure management. Three months supply was recently filled. 2. Actinic Keratosis Refill of the topical cream will be provided. Continue diligent application and use sun protection. 3. Personal History Of Colonoscopy Routine follow-up colonoscopy planned for five years unless further symptoms develop. I discussed the patient's current medication regimen and provided reassurance on the continuation of his blood pressure treatments with lisinopril and metoprolol. Given the patient's history of actinic keratosis, we emphasized the importance of sun protection and agreed to refill the effective topical cream. The recent colonoscopy results were reviewed, and prophylactic measures in general health were discussed. I suggested that records from Dr. Chaudhary be transferred for continuity of care. No additional immediate diagnostic tests are required, pending receipt of complete documentation. Patient Instructions: - Continue taking prescribed lisinopril and metoprolol as directed. - Apply the prescribed cream for actinic keratosis as needed, particularly with increased sun exposure. - Practice sun safety by wearing protective clothing and using sunscreen. - Return for routine follow-ups or if new symptoms occur. - Ensure medical records are transferred to maintain continuity of care.
--- OUTSIDE RECORDS SUMMARY | 2025-03-19 10:11 | XMS_ITS ---
Author Organization [facility] Address [address] [place] [id number] Care Team Providers Care Breastfeeding Peer Counselor Name Role Phone Neena SCHROEDER, Ramin Primary Care Provider Krishna Ross Jr Unavailable REASON FOR VISIT screening,hx polyps Encounters Encounter Location Date Provider Diagnosis [facility] [place] [facility] [place] [address] [place] [phone] 03/05/2025 Krishna Erickson Jr Colon cancer screening [...] AZRA HOLLIDAY ADOB:1965 ([age] yo M)Acc No.[id number]:03/05/2025 COLON WITH MAC Patient:?AZRA HOLLIDAY Provider:?Krishna Erickson MD :1965???Age:59 Y???Sex:Male Tom e:03/05/2025 Address:[address] [place] [address] [id number] Pcp:Ramin Chaudhary MD Subjective: * Chief Complaints: * ???1. Screening,hx polyps. * Medical History:? Objective: * Vitals:? Assessment: * Assessment: 1.?Colon cancer screening - Z12.11 (Primary)???2.?Personal history of adenomatous and serrated colon polyps - Z86.0101??? Plan: * Treatment: * Procedure Codes:?88665 DIAGN OSTIC COLONOSCOPY, 0529F INTRVL 3+YRS PTS CLNSCP DOCD, 0528F RCMND FLW-UP 10 YRS DOCD, Modifiers: 1P * * The named appointment provid er may or may not be the originator of this progress note, and it is not deemed complete until electronically signed by the appointment provider. Sign off status: Pending * Provider:?Krishna Erickson MD Date:?0 03/05/2025 Generated for Jamaal tamayo/Jasmin/eTransmitting on:?03/19/2025 10:10 AM EDT
== END 2025-03-19 10:24 | disposition home or self-care (01) ==
LOC: HO.HMCSH 09:55
PROVIDERS: PCP Internal Medicine; Visit Provider Physician Assistant Medical
DX: Z76.89 Persons encountering health services in other specified circumstances (principal); E66.811 Obesity, class 1; Z68.34 Body mass index [BMI] 34.0-34.9, adult; I10 Essential (primary) hypertension; L65.9 Nonscarring hair loss, unspecified

== ENCOUNTER → 2025-03-19 09:55 | Outpatient (BNVA) | payer OTHER, SELFPAY | PROVIDERS: PCP Internal Medicine; Visit Provider Physician Assistant Medical | DX: Z76.89 Persons encountering health services in other specified circumstances (principal); E66.811 Obesity, class 1; Z68.34 Body mass index [BMI] 34.0-34.9, adult; I10 Essential (primary) hypertension; L65.9 Nonscarring hair loss, unspecified; L57.0 Actinic keratosis; Z79.899 Other long term (current) drug therapy; Z13.30 Encounter for screening examination for mental health and behavioral disorders, unspecified | CPT/HCPCS: 96127 ==

== ENCOUNTER 2025-04-28 09:57 | Outpatient (AMB) | payer OTHER, SELFPAY ==
--- OUTSIDE RECORDS SUMMARY | 2025-03-05 07:00 | XMS_ITS ---
Author Organization [facility] Address [address] [place] [phone] Care Team Providers Care Lead Technician Name Role Phone Neena SCHROEDER, Ramin Primary Care Provider UnavailKrishna Penn Jr Unavailable REASON FOR VISIT screening,hx polyps Encounters Encounter Location Date Provider Diagnosis [facility] [place] Out[place] [address] [place] [phone] 03/05/2025 Krishna Erickson Jr Colon cancer screening Z12.11 and Personal history of adenomatous and serrated colon polyps Z86.0101 Assessments Encounter Date Diagnosis (ICD Code) Assessment Notes Treatment Notes Treatment Clinical Notes Section Notes 03/05/2025 Colon cancer screening (ICD-10 - Z12.11) 03/05/2025 Personal history of adenomatous and serrated colon polyps (ICD-10 - Z86.0101) Plan Of Treatment No Information Progress Notes * AZRA HOLLIDAY ADOB:1965 ([age] yo M)Acc No.[id number]:03/05/2025 COLON WITH MAC Patient: Parth MARTINEZ AZRA Ford Provider: Martir Erickson MD :1965 A ge:59 Y S ex:Male Date:03/05/2025 Address:[address] [place] [address] Pcp:Ramin Chaudhary MD Subjective: * Chief Complaints: * 1 [...] 0 03/05/2025 Generated for Jamaal tamayo/Jasmin/Chitoitting on: 0 04/28/2025 10:21 AM EDT
--- NOTE | 2025-04-28 10:12 | A.OFFPC_ITS ---
Vital Signs 04/28/25 10:14 Height 6 ft Weight 249 lb BMI 33.8 BP 146/88 H Respiration 14 Pulse 92 Pulse Source Pulse Oximeter Temp 98.2 F Temp Source Temporal Artery Scan Pulse Oximetry (%) 96 Oxygen Delivery Method Room Air Intake Visit Reasons: swollen, inflamed toe Field Inspector Required: No Accompanied by: Self / Same As Patient Allergies No Known Allergies Allergy (Verified 04/28/25 11:35) Medication List - Last Reconciled 04/28/25 by Mary Omer PA-C cephalexin 500 mg PO Q6H 10 days doxycycline hyclate 100 mg PO BID 10 days fluorouracil 0.5% 1 appl topical DAILY gentamicin 0.1% 1 appl topical QID lisinopril 20 mg PO DAILY metoprolol succinate ER 50 mg PO DAILY Tobacco use date assessed: 04/28/25 Dental Screening Dental Screen Date: 03/19/25 HPI swollen, inflamed toe HPI Details The patient is a 59-year-old male presenting with a painful and swollen third right toe and for a refill of cream for squamous cell carcinoma. The patient reports that the toe was sore and swollen without any known trauma, and he wears flip flops while walking his dogs. He attempted to slice the toe, which was already swollen, but no pus was observed. The patient suspects a possible insect bite as the cause of the swelling. The patient has a history of squamous cell carcinoma, for which he uses a 0.5% cream. He was initially confused about the prescription details, thinking he had refills remaining. The cream is typically used for squamous cell carcinoma and superficial basal cell carcinoma. Social History - Exercise: The patient walks his dogs r egularly, wearing flip flops. [facility] Medical History (Updated 04/28/25 @ 11:40 by Mary Omer PA-C) Primary squamous cell carcinoma of skin of head and neck region Toe pain Cellulitis of right toe Baldness Class 1 obesity with body mass index (BMI) of 34.0 to 34.9 in adult Establishing care with new doctor, encounter for HTN (hypertension) Surgical History H/O colonoscopy (~03/05/25) History of right inguinal hernia repair (04/14/20) History of umbilical hernia repair (01/20/15) History of removal of cyst (11/04/14) History of excision of mass History of tonsillectomy Family History Mother History of brain cancer Social History Housing: House Are you a primary director medicare sales to a significant other at home: No Do you presently have visiting nurse or other home services: No Alcohol intake: current Alcohol intake frequency: a few times a week Patient Tobacco Use Status: Former Tobacco user Tobacco use type: Cigarette Years Smoked: 7 service: No Current occupational status: employed Cognitive needs: No Hearing needs: No Vision needs: Yes (rx glasses) Questionnaire PHQ-9 Over the last 2 weeks, how often have you been bothered by any of the following problems? 1. Little interest or pleasure in doing things: not at all 2. Feeling down, depressed, or hopeless: not at all 3. Trouble falling or staying asleep, or sleeping too much: not at all 4. Feeling tired or having little energy: not at all 5. Poor appetite or overeating: not at all 6. Feeling bad about yourself - or that you are a failure or have let yourself or your family down: not at all 7. Trouble concentrating on things, such as reading the newspaper or watching television: not at all 8. Moving or speaking so slowly that other people could have noticed. Or the opposite - being so fidgety or restless that you have been moving around a lot more than usual: not at all 9. Thoughts that you would be better off or of hurting yourself in some way: not at all Total score: 0 Depression Screening Interpretation: Negative Depression Screening Done: Yes 73458 - PHQ-9 Billing: Yes Source: Developed by Drs. Michael Whaley, Anni Villanueva, Harvey Silvestre and colleagues, with an educational neris from [employer]. Thrive Questionnaire Date Thrive assessed: 03/19/25 I am a: Patient What is your living situation today?: I have a steady place to live Within the past 12 months, did the food you bought not last and you didn't have the money to get more?: Never true Within the past 12 months, did you worry whether your food would run out before you got money to buy more?: Never true Do you have trouble paying for medicines?: No Do you have trouble getting transportation to medical appointments?: No Do you have trouble paying your heating and electricity bill?: No Do you have trouble taking care of your child, family member or friend?: No Do you have trouble with day-to-day activities such as bathing, preparing meals, shopping, managing finances, etc.?: No Are you currently unemployed and looking for a job?: No Are you interested in more education?: No Please select the resources that you would like help with: None THRIVE Score: 0 AUDIT C Alcohol Use Questionnaire (AUDIT-C) 1. How often do you have a drink containing alcohol?: 2-3 times a week 2. How many drinks containing alcohol do you have on a typical day when you are drinking?: 1 or 2 3. How often do you have six or more drinks on one occasion?: Never Total Score: 3 Score Reviewed/Action Taken: No ANILA-7 AMB Questionnaire ANILA-7 Date ANILA - 7 assessed: 03/19/25 Feeling nervous, anxious, or on edge: 0 = Not at all Not being able to stop or control worryin = Not at all Worrying too much about different things: 0 = Not at all Trouble relaxin = Not at all Being so restless that it is hard to sit still: 0 = Not at all Becoming easily annoyed or irritable: 0 = Not at all Feeling afraid as if something awful might happen: 0 = Not at all Total ANILA-7 score (0-4 normal; 5-9 mild; 10-14 moderate; 15-21 severe): 0 Source: Developed by Drs. Michael Whaley, Anni Villanueva, Harvey Silvestre and colleagues, with an educational neris from [employer]. ANILA-7 Assessment Billing ANILA-7 Assessment Tool: ANILA-7 Assessment 90341 Review of Systems Const Details: - Musculoskeletal: Reports swelling and soreness in the third right toe. - Integumentary: Denies presence of pus in the affected area. All systems reviewed & are unremarkable except as noted in HPI and below Physical exam (Primary Care) Vital Signs: Last Vital Signs Temp 98.2 F 04/28/25 10:14 Pulse 92 07/02/25 10:14 Resp 14 04/28/25 10:14 BP 146/88 H 04/28/25 10:14 Pulse Ox 96 04/28/25 10:14 Oxygen Delivery Method Room Air 04/28/25 10:14 Care Plan Goal for BP management: <140/90 BMI result Body Mass Index 33.8 Tobacco/Smoking Status: Tobacco use Status Tobacco use date assessed 04/28/25 04/28/25 10:17 Patient Tobacco Use Status Former Tobacco user 04/28/25 10:14 Tobacco use type Cigarette 04/28/25 10:14 PHQ-9: PHQ-9 Score PHQ-9: Total score 0 04/28/25 10:17 Depression Screening Interpretation: Negative Thrive Assessment: Date of Thrive Assessment Date Thrive assessed 03/19/25 04/28/25 10:14 Const Other: Appearance: Alert. Oriented X3. No acute distress. Head: Normal external exam. Normocephalic. Atraumatic. Eyes: Pupils are equal, round, and reactive to light. Extraocular movements intact. Conjunctiva and sclera normal. Eyelids normal. Throat: Pharynx normal. Uvula midline. Moist mucous membranes. Neck: Normal inspection. Neck supple. Full range of motion. Cardiovascular: Normal heart rate and rhythm. Respiratory: No respiratory distress. Painless inspiration. Back: Full range of motion noted. Skin: Skin warm and dry. Normal skin color. Normal skin turgor. No rashes/lesions/lacerations noted. Extremities: Swelling noted in the third right toe with soft tissue swelling, erythema, tenderness to palpation and warmth to touch consistent with cellulitis infection. No fluctuance is noted at this time, streaking, foreign bodies and patient has good range of motion of right 3rd toe. Not consistent with septic joint. Otherwise all other extremities exhibit normal range of motion nontender. There is no lower extremity edema noted. There is no streaking noted. Neuro: Oriented X 3. No motor deficit. No sensory deficit. Reflexes normal. Coding Level of Care Code Est Pt Level 4 (76286) Complex EM visit Add On G2211 Diagnoses Primary squamous cell carcinoma of skin of head and neck region C44.42 Cellulitis of right toe L03.031 Additional Codes ANILA-7 Assessment Billing - ANILA-7 Assessment Tool: ANILA-7 Assessment 05384 ([id number]) PHQ-9 - 66323 - PHQ-9 Billing: Yes ([id number]) Assessment & Plan Assessment & Plan (1) Primary squamous cell carcinoma of skin of head and neck region: Code(s): C44.42 - Squamous cell carcinoma of skin of scalp and neck Category: Medical Plan: The patient will continue using the prescribed 0.5% cream for squamous cell carcinoma. Refills have been updated to ensure continuous treatment. Condition is chronic and stable continue to monitor. (2) Cellulitis of right toe: Code(s): L03.031 - Cellulitis of right toe Category: Medical Plan: The patient is prescribed Keflex and doxycycline for 10 days to treat cellulitis. An x-ray of the toe and blood work will be conducted to rule out a fracture and assess for infection. The patient is advised to use warm compresses and avoid ice to facilitate healing. Follow-up is scheduled to monitor the condition's progression. Plan Plan Patient was informed and verbally consented to the use of an ambient scribe for clinic note documentation during this visit. 1. Squamous Cell Carcinoma The patient will continue using the prescribed 5% cream for squamous cell carcinoma. Refills have been updated to ensure continuous treatment. 2. Cellulitis The patient is prescribed Keflex and doxycycline for 10 days to treat cellulitis. An x-ray of the toe and blood work will be conducted to rule out a fracture and assess for infection. The patient is advised to use warm compresses and avoid ice to facilitate healing. Follow-up is scheduled to monitor the condition's progression. I discussed with the patient the diagnosis of cellulitis and the treatment plan, including the use of Keflex and doxycycline. I explained the importance of avoiding sun exposure while on doxycycline due to the risk of photosensitivity. We also discussed the need for an x-ray and blood work to rule out a fracture and assess for infection. I advised the patient to use warm compresses and avoid ice to facilitate healing and scheduled a follow-up appointment to monitor progress. Orders: Orders Basic Metabolic Panel Today L03.031 - Cellulitis of right toe XR toe RT min 2V Today M79.676 - Pain in unspecified toe(s) Complete Blood Count no Diff Today L03.031 - Cellulitis of right toe C Reactive Protein Today Z00.00 - Encounter for general adult medical examination without abnormal findings Erythrocyte Sedimentation Rate Today Z00.00 - Encounter for general adult medical examination without abnormal findings Medications: New fluorouracil 0.5% 1 appl topical DAILY 30 grams 6RF cephalexin 500 mg PO Q6H 40 caps 0RF 10 days doxycycline hyclate 100 mg PO BID 20 tabs 0RF 10 days gentamicin 0.1% 1 appl topical QID 30 grams 1RF Patient Instructions: - Take Keflex and doxycycline as prescribed for 10 days. - Avoid sun exposure while taking doxycycline to prevent sunburn. - Use warm compresses on the affected toe and avoid using ice. - Attend the scheduled follow-up appointment to monitor the condition. - Go for an x-ray and blood work as instructed.
[2025-04-28 10:14] VITALS: BP 146/88; PULSE 92; RESP 14; TEMP 36.8; O2SAT 96; BMI 33.8
== END 2025-04-28 10:53 | disposition home or self-care (01) ==
LOC: HO.HMCSH 09:57
PROVIDERS: PCP Internal Medicine; Visit Provider Physician Assistant Medical
DX: C44.42 Squamous cell carcinoma of skin of scalp and neck (principal); L03.031 Cellulitis of right toe

== ENCOUNTER 2025-04-28 09:57 | Outpatient (REF) | payer OTHER, SELFPAY ==
--- NOTE | ~2025-04-28 | XR_ITS ---
EXAMINATION: XR TOES, RIGHT CLINICAL INFORMATION: M79.676 - Pain in unspecified toe(s), swelling, and redness COMPARISON: None available. TECHNIQUE: 3 views of the right toes were obtained. FINDINGS: There is soft tissue swelling involving the third toe without definite fracture or cortical erosion. Small marginal osteophytes are present at the first metatarsophalangeal joint, third DIP joint, and fifth PIP joint. XR/XR toe RT min 2V IMPRESSION: Soft tissue swelling of the third toe. Mild changes of osteoarthritis involving first MTP, third DIP, and fifth PIP joints. Electronically signed by: Memo Reyes MD 04/28/2025 12:15 PM EDT
== END 2025-04-28 09:58 | disposition home or self-care (01) ==
LOC: HO.HMGCX 09:57
PROVIDERS: PCP Internal Medicine; Visit Provider Physician Assistant Medical
DX: C44.42 Squamous cell carcinoma of skin of scalp and neck (principal); L03.031 Cellulitis of right toe; M79.671 Pain in right foot; Z13.31 Encounter for screening for depression; Z13.39 Encounter for screening examination for other mental health and behavioral disorders
CPT/HCPCS: 73660; 96127

== ENCOUNTER → 2025-04-28 11:20 | Outpatient (BNV) | payer OTHER, SELFPAY | PROVIDERS: PCP Internal Medicine; Visit Provider Radiology Diagnostic Radiology | DX: M79.674 Pain in right toe(s) (principal) | CPT/HCPCS: 73660 ==

== ENCOUNTER 2025-08-10 08:51 | Outpatient (AMB) | payer OTHER, SELFPAY ==
--- OUTSIDE RECORDS SUMMARY | 2025-03-05 07:00 | XMS_ITS ---
Author Organization [facility] Address [address] [place] [phone] Care Team Providers Care Paper Final Inspector Name Role Phone Neena (RETIRED) , Ramin Primary Care Provider Unavailable Krishna Erickson Jr Unavailable REASON FOR VISIT screening,hx polyps Encounters Encounter Location Date Provider Diagnosis [facility] [place] Out[facility] [address] [place] [phone] 03/05/2025 Krishna Erickson Jr Colon cancer screening [...] AZRA HOLLIDAY ADOB:1965 ([age] yo M)Acc No.[id number]:03/05/2025 COLON WITH MAC Patient: AZRA GARRISON Logan Provider: Martir Erickson MD :1965 A ge:59 Y S ex:Male Date:03/05/2025 Address:[address] [place] [id number] Pcp:Ramin Chaudhary (RETIRED) MD Subjective: * Chief [...] 03/05/2025 Generated for Jamaal tamayo/Jasmin/Chitoitting on: 1 09:22 AM EDT
[2025-08-10 08:56] VITALS: BP 136/92; PULSE 71; RESP 16; TEMP 35.9; O2SAT 97; BMI 35.1
--- NOTE | 2025-08-10 08:56 | MHC.PC.OV ---
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 Accompanied by: Self / Same As Patient Allergies No Known Allergies Allergy (Verified 08/10/25 10:14) Medication List - Last Reconciled 08/10/25 by Mary Omer PA-C blood pressure test kit-large check BP daily fluorouracil 0.5% 1 appl topical DAILY lisinopril 20 mg PO DAILY metoprolol succinate ER 50 mg PO DAILY Tobacco use date assessed: 08/10/25 Dental Screening Dental Screen Date: 08/10/25 Did you have a dental visit in the last 12 months?: Yes Did you have a dental problem in the last 6 months where you did not have access to dental care?: No Was dental information given to patient?: Patient has dentist HPI physical HPI Details The patient is a 60-year-old male presenting with a annual physical examination. He reports a history of hypertension, with recent blood pressure readings of 140/90 mmHg and 136/92 mmHg, indicating elevated levels. The patient has been on lisinopril 20 mg and metoprolol 50 mg for blood pressure management, with a history of fluctuating readings. The patient also reports a history of arthritis, particularly affecting his foot, which was confirmed by an X-ray. He attributes some of the discomfort to his exercise routine, which includes jumping jacks. A breast lump was identified during the examination, located at the 9 o'clock position on the left breast and at the 3 o'clock position on the right breast. The patient has a history of fatty tissue growths, with previous removals from his legs. The patient has a history of precancerous skin lesions on the scalp, which were treated with laser therapy and topical cream. He reports running out of the prescribed cream and is considering its continued use. The patient underwent a colonoscopy approximately four to five months ago, which was clear of polyps. Due to a history of polyps, the next colonoscopy is recommended in five years. Social History - Exercise: Engages in regular physical activity, including walking and chair workouts. 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 [facility] Medical History (Updated 08/10/25 @ 10:18 by Mary Omer PA-C) Arthritis Annual physical exam Left breast lump Lump of right breast Primary squamous cell carcinoma of skin of head and neck region Toe pain Cellulitis of right toe Baldness Class 1 obesity with body mass index (BMI) of 34.0 to 34.9 in adult Establishing care with new doctor, encounter for HTN (hypertension) Surgical History H/O colonoscopy (~03/05/25) History of right inguinal hernia repair (04/14/20) History of umbilical hernia repair (11/16/14) History of removal of cyst (11/04/14) History of excision of mass History of tonsillectomy Family History Mother History of brain cancer Social History Housing: House Are you a primary youth care worker to a significant other at home: No Do you presently have visiting nurse or other home services: No Alcohol intake: current Alcohol intake frequency: a few times a week Patient Tobacco Use Status: Former Tobacco user Tobacco use type: Cigarette Years Smoked: 7 service: No Current occupational status: employed Cognitive needs: No Hearing needs: No Vision needs: Yes (rx glasses) Questionnaire PHQ-9 Over the last 2 weeks, how often have you been bothered by any of the following problems? 1. Little interest or pleasure in doing things: not at all 2. Feeling down, depressed, or hopeless: not at all 3. Trouble falling or staying asleep, or sleeping too much: not at all 4. Feeling tired or having little energy: not at all 5. Poor appetite or overeating: not at all 6. Feeling bad about yourself - or that you are a failure or have let yourself or your family down: not at all 7. Trouble concentrating on things, such as reading the newspaper or watching television: not at all 8. Moving or speaking so slowly that other people could have noticed. Or the opposite - being so fidgety or restless that you have been moving around a lot more than usual: not at all 9. Thoughts that you would be better off or of hurting yourself in some way: not at all Total score: 0 Depression Screening Interpretation: Negative Depression Screening Done: Yes 88351 - PHQ-9 Billing: Yes Source: Developed by Drs. Michael Whaley, Anni Villanueva, Harvey Silvestre and colleagues, with an educational neris from [employer]. Thrive Questionnaire Date Thrive assessed: 08/10/25 I am a: Patient What is your living situation today?: I have a steady place to live Within the past 12 months, did the food you bought not last and you didn't have the money to get more?: Never true Within the past 12 months, did you worry whether your food would run out before you got money to buy more?: Never true Do you have trouble paying for medicines?: No Do you have trouble getting transportation to medical appointments?: No Do you have trouble paying your heating and electricity bill?: No Do you have trouble taking care of your child, family member or friend?: No Do you have trouble with day-to-day activities such as bathing, preparing meals, shopping, managing finances, etc.?: No Are you currently unemployed and looking for a job?: No Are you interested in more education?: No Please select the resources that you would like help with: None THRIVE Score: 0 AUDIT C Alcohol Use Questionnaire (AUDIT-C) 1. How often do you have a drink containing alcohol?: 2-3 times a week 2. How many drinks containing alcohol do you have on a typical day when you are drinking?: 1 or 2 3. How often do you have six or more drinks on one occasion?: Never Total Score: 3 Score Reviewed/Action Taken: No ANILA-7 AMB Questionnaire ANILA-7 Date ANILA - 7 assessed: 08/10/25 Feeling nervous, anxious, or on edge: 0 = Not at all Not being able to stop or control worryin = Not at all Worrying too much about different things: 0 = Not at all Trouble relaxin = Not at all Being so restless that it is hard to sit still: 0 = Not at all Becoming easily annoyed or irritable: 0 = Not at all Feeling afraid as if something awful might happen: 0 = Not at all Total ANILA-7 score (0-4 normal; 5-9 mild; 10-14 moderate; 15-21 severe): 0 Source: Developed by Drs. Michael Whaley, Anni Villanueva, Harvey Silvestre and colleagues, with an educational neris from [employer]. ANILA-7 Assessment Billing ANILA-7 Assessment Tool: ANILA-7 Assessment 75861 Review of Systems Const Details: - Cardiovascular: Reports elevated blood pressure readings. Denies chest pain or palpitations. - Musculoskeletal: Reports arthritis in the foot. Denies recent falls or injuries. - Dermatological: Reports history of precancerous lesions on the scalp. Denies current skin changes. - Gastrointestinal: Denies abdominal pain, black or bloody stools. - Neurological: Denies dizziness or balance issues. All systems reviewed & are unremarkable except as noted in HPI and below Physical exam (Primary Care) Vital Signs: Last Vital Signs Temp 96.7 F L 08/10/25 08:56 Pulse 71 08/10/25 08:56 Resp 16 08/10/25 08:56 BP 136/92 H 08/10/25 08:56 Pulse Ox 97 08/10/25 08:56 Oxygen Delivery Method Room Air 08/10/25 08:56 Care Plan Goal for BP management: <140/90 patient will monitor her blood pressure return in 2 weeks for blood pressure check with nurse if blood pressure continues to be elevated will make changes to blood pressure medications currently on BMI result Body Mass Index 35.1 BMI Assessment/Plan discussion: High BMI High, discussed plan: lifestyle, weight reduction, dietary, physical activity, alcohol moderation and other Tobacco/Smoking Status: Tobacco use Status Tobacco use date assessed 08/10/25 08/10/25 09:06 Patient Tobacco Use Status Former Tobacco user 08/10/25 09:06 Tobacco use type Cigarette 08/10/25 09:06 PHQ-9: PHQ-9 Score PHQ-9: Total score 0 08/10/25 09:06 Depression Screening Interpretation: Negative Thrive Assessment: Date of Thrive Assessment Date Thrive assessed 08/10/25 08/10/25 09:06 Const Other: Appearance: Alert. Oriented X3. No acute distress. Head: Normal external exam. Normocephalic. Atraumatic. Eyes: Pupils are equal, round, and reactive to light. Extraocular movements intact. Conjunctiva and sclera normal. Eyelids normal. Ears: External auditory canal normal. Tympanic membranes normal. Minimal wax noted. Throat: Pharynx normal. Uvula midline. Moist mucous membranes. Neck: Normal inspection. Neck supple. Full range of motion. No adenopathy. Thyroid Normal. No meningeal signs. No neck mass noted. Cardiovascular: Normal heart rate and rhythm. Heart sound normal. No murmurs noted. Pulses normal throughout. Blood pressure recorded at 140/90. Respiratory: No respiratory distress. Painless inspiration. Breath sounds normal. No wheezes/rales/rhonchi noted. Chest nontender. No accessory muscle usage noted or decreased air movement noted. Breast: To the left breast at 09:00 patient has nonpainful lump. Nipple is normal. To the right breast patient has a lump at the 03:00 nonpainful. No signs of infection. Nipple is normal. No rashes are noted. No nipple discharge is noted. Abdomen: Soft and nontender. Bowel sounds normal in all 4 quadrants. No distention noted. No organomegaly noted. No visible injury noted. Back: No costovertebral angle tenderness. Full range of motion noted. Skin: Skin warm and dry. Normal skin color. Normal skin turgor. No rashes/lesions/lacerations noted. Patient reports a history of cellulitis infection on the toe, currently resolved. Extremities: No lower extremity edema. Extremities exhibit normal range of motion. Extremities nontender. X-ray of foot showed arthritis. Neuro: Oriented X 3. No motor deficit. No sensory deficit. Reflexes normal. Results Reviewed Results Reviewed: - Labs: Blood work ordered to assess cholesterol, kidney function, and diabetes markers. - Imaging: Mammogram and ultrasound ordered for breast lumps. Coding Level of Care Code Est Pt Level 4 (49995) Est Pt Prev Care 40-64y(46964) Diagnoses Annual physical exam Z00.00 HTN (hypertension) I10 Arthritis M19.90 Primary squamous cell carcinoma of skin of head and neck region C44.42 Lump of right breast N63.10 Left breast lump N63.20 Additional Codes ANILA-7 Assessment Billing - ANILA-7 Assessment Tool: ANILA-7 Assessment 45299 ([id number]) PHQ-9 - 73290 - PHQ-9 Billing: Yes ([id number]) Time Spent (min) 60 Assessment & Plan Assessment & Plan (1) Annual physical exam: Code(s): Z00.00 - Encounter for general adult medical examination without abnormal findings Category: Medical (2) HTN (hypertension): Code(s): I10 - Essential (primary) hypertension Category: Medical Plan: The patient will monitor blood pressure at home for two weeks to assess for persistent elevation. If readings remain elevated, medication adjustments will be considered. (3) Arthritis: Code(s): M19.90 - Unspecified osteoarthritis, unspecified site Category: Medical Plan: The patient is advised to continue current exercise regimen with modifications to reduce joint stress. (4) Primary squamous cell carcinoma of skin of head and neck region: Code(s): C44.42 - Squamous cell carcinoma of skin of scalp and neck Category: Medical Plan: The patient is advised to continue monitoring the scalp and consider resuming topical treatment as needed. (5) Lump of right breast: Code(s): N63.10 - Unspecified lump in the right breast, unspecified quadrant Category: Medical Plan: A mammogram and ultrasound have been ordered to further evaluate the breast lumps. (6) Left breast lump: Code(s): N63.20 - Unspecified lump in the left breast, unspecified quadrant Category: Medical Plan: A mammogram and ultrasound have been ordered to further evaluate the breast lumps. Plan Plan Patient was informed and verbally consented to the use of an ambient scribe for clinic note documentation during this visit. 1. Essential Hypertension The patient will monitor blood pressure at home for two weeks to assess for persistent elevation. If readings remain elevated, medication adjustments will be considered. 2. Arthritis The patient is advised to continue current exercise regimen with modifications to reduce joint stress. 3. Breast Lump A mammogram and ultrasound have been ordered to further evaluate the breast lumps. 4. Precancerous Skin Lesions The patient is advised to continue monitoring the scalp and consider resuming topical treatment as needed. During the visit, we discussed the importance of monitoring blood pressure at home and the potential need for medication adjustments if hypertension persists. We also reviewed the plan for imaging studies to evaluate the breast lumps and the continuation of topical treatment for precancerous skin lesions. Orders: Orders Comprehensive [place]. Panel Fast Today Z00.00 - Encounter for general adult medical examination without abnormal findings Lipid Panel Today Z00.00 - Encounter for general adult medical examination without abnormal findings Liver Panel Today Z00.00 - Encounter for general adult medical examination without abnormal findings MM diagnostic mammo BI Today N63.10 - Unspecified lump in the right breast, unspecified quadrant, N63.20 - Unspecified lump in the left breast, unspecified quadrant Hemoglobin A1c Today Z00.00 - Encounter for general adult medical examination without abnormal findings PSA,Total (Free>4and<10) Today Z00.00 - Encounter for general adult medical examination without abnormal findings TSH reflex Free T4 Today Z00.00 - Encounter for general adult medical examination without abnormal findings UA CC w/rflx Micro + Cult Today Z00.00 - Encounter for general adult medical examination without abnormal findings Magnesium Today Z00.00 - Encounter for general adult medical examination without abnormal findings Vitamin B12 and Folate Today Z00.00 - Encounter for general adult medical examination without abnormal findings Vitamin D 25-OH Total Today Z00.00 - Encounter for general adult medical examination without abnormal findings US breast LT limited Today N63.10 - Unspecified lump in the right breast, unspecified quadrant, N63.20 - Unspecified lump in the left breast, unspecified quadrant US breast RT limited Today N63.10 - Unspecified lump in the right breast, unspecified quadrant, N63.20 - Unspecified lump in the left breast, unspecified quadrant Medications: New blood pressure test kit-large check BP daily 1 ea 0RF I10 - Essential (primary) hypertension Refilled fluorouracil 0.5% 1 appl topical DAILY 30 grams 6RF Discontinued cephalexin Discontinued Reason: Doctor's Order 500 mg PO Q6H 40 caps 0RF 10 days doxycycline hyclate Discontinued Reason: Doctor's Order 100 mg PO BID 20 tabs 0RF 10 days gentamicin 0.1% Discontinued Reason: Doctor's Order 1 appl topical QID 30 grams 1RF Patient Instructions: - Monitor blood pressure at home for two weeks and report any persistent elevations. - Follow up with imaging studies for breast lumps as scheduled. - Consider resuming topical treatment for scalp lesions if needed.
--- OUTSIDE RECORDS SUMMARY | 2025-08-10 09:23 | XMS_ITS | Patient Health Record ---
Author Organization [facility] Address [address] [place] [address] Care Team Providers Care Final Assembler Boat Name Role Phone Neena (RETIRED) Ramin SCHROEDER Primary Care Provider Unavailable Krishna Erickson Jr Unavailable Allergies No Known Allergies Reason For Referral [...] Problem Status W/U Status Risk Notes Problem Colon cancer screening (487297614) Colon cancer screening (Z12.11) Active confirmed Problem Pre-procedure evaluation check (365208864) Encounter for other preprocedural examination (Z01.818) Active confirmed Problem History of adenomatous polyp of colon (801543163) History of adenomatous polyp of colon (Z86.0101) Active confirmed Vital Signs Temperature 98.2 degrees Fahrenheit 02/10/2025 Blood pressure diastolic 01 mm Hg 02/10/2025 Height 71 in 02/10/2025 Blood pressure systolic 001 mm Hg 02/10/2025 Weight 253.2 lbs 02/10/2025 BMI 35.31 kg/m2 02/10/2025 Encounters Encounter Location Date Provider Diagnosis [facility] [place] [address] [place] [id number] 03/05/2025 Krishna Erickson Jr Colon cancer screening Z12.11 and Personal history of adenomatous and serrated colon polyps Z86.0101 [facility] [address] [place] [address] 02/10/2025 Krishna Erickson Jr History of adenomatous polyp of colon Z86.0101 ; Encounter for other preprocedural examination Z01.818 and Colon cancer screening Z12.11 [facility] [address] [place] [address] 03/03/2025 Krishna Erickson Jr Assessments Encounter Date Diagnosis (ICD Code) Assessment Notes Treatment Notes Treatment Clinical Notes Section Notes 03/05/2025 Colon cancer screening (ICD-10 - Z12.11) 03/05/2025 Personal history of adenomatous and serrated colon polyps (ICD-10 - Z86.0101) 02/10/2025 Encounter for other preprocedural examination (ICD-10 [...] Date COLONOSCOPY 04/25/2016 COLONOSCOPY 01/10/2022 COLONOSCOPY 02/10/2025 Insurance Providers Payer Name Payer Address Payer Phone Subscriber Number Group Number Insured Name Patient Relationship to Insured Coverage Start Date Coverage End Date [facility] ([employer] [address] [place] [id number] Self - patient is the insured Medical (General) History Medical History History ICD Code hypertension Colonoscopy 01/16, tubular adenoma x 3, 3 -year follow-up Surgical History Surgery Date(Month/Year) Recurrent right inguinal hernia, repair x 2
== END 2025-08-10 09:42 | disposition home or self-care (01) ==
LOC: HO.HMCSH 08:51
PROVIDERS: PCP Internal Medicine; Visit Provider Physician Assistant Medical
DX: Z00.01 Encounter for general adult medical examination with abnormal findings (principal); N63.15 Unspecified lump in the right breast, overlapping quadrants; N63.22 Unspecified lump in the left breast, upper inner quadrant; C44.42 Squamous cell carcinoma of skin of scalp and neck; I10 Essential (primary) hypertension; M19.90 Unspecified osteoarthritis, unspecified site

== ENCOUNTER → 2025-08-10 08:51 | Outpatient (BNVA) | payer OTHER, SELFPAY | PROVIDERS: PCP Internal Medicine; Visit Provider Physician Assistant Medical | DX: Z00.00 Encounter for general adult medical examination without abnormal findings (principal); M19.079 Primary osteoarthritis, unspecified ankle and foot; N63.25 Unspecified lump in the left breast, overlapping quadrants; N63.15 Unspecified lump in the right breast, overlapping quadrants; I10 Essential (primary) hypertension; C44.42 Squamous cell carcinoma of skin of scalp and neck | CPT/HCPCS: 96127 ==

== ENCOUNTER 2025-08-16 07:45 | Outpatient (REF) | payer OTHER, SELFPAY ==
--- OUTSIDE RECORDS SUMMARY | 2025-03-05 07:00 | XMS_ITS ---
Author Organization [facility] Address [address] [place] [address] Care Team Providers Care Derivatives Trader Name Role Phone Neena (RETIRED) , Ramin Primary Care Provider Unavailable Krishna Erickson Jr Unavailable REASON FOR VISIT screening,hx polyps Encounters Encounter Location Date Provider Diagnosis [facility] [address] [place] [phone] 03/05/2025 Krishna Erickson Jr Colon cancer screening Z12.11 and Personal history of adenomatous and serrated colon polyps Z86.0101 Assessments Encounter Date Diagnosis (ICD Code) Assessment Notes Treatment Notes Treatment Clinical Notes Section Notes 03/05/2025 Colon cancer screening (ICD-10 - Z12.11) 03/05/2025 Personal history of adenomatous and serrated colon polyps (ICD-10 - Z86.0101) Plan Of Treatment No Information Progress Notes * AZRA HOLLIDAY ADOB:1965 ([age] yo M)Acc No.[id number]:03/05/2025 COLON WITH MAC Patient: AZRA GARRISON Logan Provider: Martir Erickson MD :1965 A ge:59 Y S ex:Male Date:03/05/2025 Address:[address] [place] [address] [id number] Pcp:Ramin Chaudhary (RETIRED) MD Subjective: * Chief Complaints: * 1 . Screening,hx polyps. * Medical History: Objective: * Vitals: Assessment: * Assessment: 1. C olon cancer screening - Z12.11 (Primary) 2 . P ersonal history of adenomatous and serrated colon polyps - Z86.0101 Plan: * Treatment: * Procedure Codes: 4 5378 DIAGNOSTIC COLONOSCOPY, 0529F INTRVL 3+YRS PTS CLNSCP DOCD, 0528F RCMND FLW-UP 10 YRS DOCD, Modifiers: 1P * * The named appointment provid er may or may not be the originator of this progress note, and it is not deemed complete until electronically signed by the appointment provider. Sign off status: Pending * Provider: Martir Erickson MD Date: 0 03/05/2025 Generated for Jamaal tamayo/Jasmin/Chitoitting on: 1 07:48 AM EDT
--- OUTSIDE RECORDS SUMMARY | 2025-08-16 07:49 | XMS_ITS | Patient Health Record ---
Author Organization [facility] Address [address] [place] [address] Care Team Providers Care Animal Nursery Worker Name Role Phone Neena (RETIRED) Ramin SCHROEDER Primary Care Provider Unavailable Krishna Erickson Jr Unavailable [phone] Allergies No Known Allergies Reason For Referral [...] Status Risk Notes Problem Colon cancer screening (296999195) Colon cancer screening (Z12.11) Active confirmed Problem Pre-procedure evaluation check (458433138) Encounter for other preprocedural examination (Z01.818) Active confirmed Problem History of adenomatous polyp of colon (922911181) History of adenomatous polyp of colon (Z86.0101) Active confirmed Vital Signs Temperature 98.2 degrees Fahrenheit 02/10/2025 Blood pressure diastolic 01 mm Hg 02/10/2025 Height 71 in 02/10/2025 Blood pressure systolic 001 mm Hg 02/10/2025 Weight 253.2 lbs 02/10/2025 BMI 35.31 kg/m2 02/10/2025 Encounters Encounter Location Date Provider Diagnosis [facility] [place] [address] [place] [id number] 03/05/2025 Krishna Erickson Jr Colon cancer screening Z12.11 and Personal history of adenomatous and serrated colon polyps Z86.0101 [facility] [address] [place] [address] 02/10/2025 Krishna Erickson Jr History of adenomatous polyp of colon Z86.0101 ; Encounter for other preprocedural examination Z01.818 and Colon cancer screening Z12.11 [facility] [address] [place] [address] 03/03/2025 Krishna Erickson Jr Assessments Encounter Date [...] Insured Coverage Start Date Coverage End Date [facility] [id number] [place] [id number] Self - patient is the insured Medical (General) History Medical History History ICD Code hypertension Colonoscopy 01/16, tubular adenoma x 3, 3 -year follow-up Surgical History Surgery Date(Month/Year) Recurrent right inguinal hernia, repair x 2
[2025-08-16 10:09] LABS: Appearance Urine Clear; Glucose Urine UA Negative (Negative); PH 6.0 (5.0-9.0); Specific Gravity - Urine 1.020 (1.005-1.025); UMIC TRIGGER UACC YES
[2025-08-16 10:43] LABS: Hematocrit 50.0 % (42.0-52.0); Hemoglobin 17.1 g/dl (14.0-18.0); Mean Corpuscular HGB Conc 34.2 g/dl (31.0-36.0); Mean Corpuscular Hemoglobin 31.9 pg (27.0-33.0); Mean Corpuscular Volume 93.3 fL (80.0-98.0); NRBC Abs Auto 0.000 X10*3/uL (0.0-0.012); NRBC Pct Auto 0.0 /100WBC (0.0-0.2); Platelet Count 199 X10*3/uL (160-400); Red Blood Count 5.36 X10*6/uL (4.60-5.80); White Blood Count 4.6 X10*3/uL (4.8-10.8)
[2025-08-16 11:09] LABS: PSA,Total (Free>4and<10) 0.39 ng/mL (0.00-4.00)
[2025-08-16 11:20] LABS: Folate 9.0 ng/mL (> or = 4.0); Vitamin B12 207 pg/mL (200-900)
[2025-08-16 11:37] LABS: Alanine Aminotransferase 31 U/L (0-40); Albumin Level 4.4 g/dL (3.5-5.0); Alkaline Phosphatase 65 U/L (39-117); Anion Gap 14 (12-20); Aspartate Amino Transferase 24 U/L (5-37); Blood Urea Nitrogen 17 mg/dL (9-16); Calcium 9.1 mg/dL (8.4-10.2); Carbon Dioxide 23 mmol/L (22-29); Chloride 107 mmol/L (96-108); Cholesterol 194 mg/dL (<200); Estimated Glomerular Filt Rate > 60; HDL Cholesterol 45 mg/dL (>40); Magnesium 2.0 mg/dL (1.6-2.6); Potassium 4.5 mmol/L (3.3-5.1); Sodium 139 mmol/L (135-145); Total Protein 7.1 g/dL (6.5-8.0); Triglycerides 154 mg/dL (<150); Uric Acid 8.3 mg/dL (3.4-7.0)
== END 2025-08-16 07:46 | disposition home or self-care (01) ==
LOC: HO.HMGCLDS 07:45
PROVIDERS: PCP Physician Assistant Medical; Visit Provider Physician Assistant Medical
DX: Z00.00 Encounter for general adult medical examination without abnormal findings (principal); Z12.5 Encounter for screening for malignant neoplasm of prostate; Z13.6 Encounter for screening for cardiovascular disorders; Z13.29 Encounter for screening for other suspected endocrine disorder; Z13.1 Encounter for screening for diabetes mellitus; Z13.21 Encounter for screening for nutritional disorder; M79.676 Pain in unspecified toe(s); L03.031 Cellulitis of right toe
CPT/HCPCS: 36415; 80053; 80061; 80076; 81001; 82248; 82306; 82607; 82746; 83036; 83735; 84153; 84443; 84550; 85027; 85652; 86140